=== PATIENT | female | born 2000 | race Caucasian/White ===

== ENCOUNTER 2021-08-18 14:07 | Emergency (ER) | payer OTHER ==
[2021-08-18 14:58] LABS: HEMOGLOBIN 13.9 gm/dl (12.3-15.3); RED BLOOD COUNT 4.88 M/UL (4.00-5.10); WHITE BLOOD COUNT 9.7 K/UL (4.5-11.0)
[2021-08-18 15:16] LABS: BUN/CREATININE RATIO 15 (0-10)
== END 2021-08-18 16:20 | disposition left against medical advice (07) ==
LOC: ER1 14:07
PROVIDERS: Physician Assistant
DX: O99.891 Other specified diseases and conditions complicating pregnancy (principal); R05.9 Cough, unspecified; R10.30 Lower abdominal pain, unspecified; R09.89 Other specified symptoms and signs involving the circulatory and respiratory systems; O99.331 Smoking (tobacco) complicating pregnancy, first trimester; F17.200 Nicotine dependence, unspecified, uncomplicated; Z20.822 Contact with and (suspected) exposure to COVID-19; Z3A.01 Less than 8 weeks gestation of pregnancy
CPT/HCPCS: 80053; 81001; 84703; 85025; 99283; U0003

== ENCOUNTER 2022-02-23 11:02 | Outpatient (CLI) | payer OTHER ==
[2022-02-23 11:34] LABS: HEMOGLOBIN 11.6 gm/dl (12.3-15.3); RED BLOOD COUNT 3.73 M/UL (4.00-5.10); WHITE BLOOD COUNT 9.5 K/UL (4.5-11.0)
== END 2022-02-23 14:43 | disposition home or self-care (01) ==
LOC: GENOP 11:02
PROVIDERS: Obstetrics & Gynecology
DX: O47.03 False labor before 37 completed weeks of gestation, third trimester (principal); Z3A.30 30 weeks gestation of pregnancy
CPT/HCPCS: 81001; 85025; 96361; 96365; 96372; J0702

== ENCOUNTER → 2022-04-01 | Outpatient (CLI) | payer OTHER | LOC: KOH-I 13:30 | DX: M79.605 Pain in left leg (principal) | CPT/HCPCS: 93971 ==

== ENCOUNTER 2022-04-07 16:46 | Inpatient (IN) | payer OTHER ==
[~2022-04-07] VITALS: Ht 165.1 cm; Wt 80.7 kg
[2022-04-07 17:59] LABS: HEMOGLOBIN 11.4 gm/dl (12.3-15.3); RED BLOOD COUNT 3.74 M/UL (4.00-5.10); WHITE BLOOD COUNT 11.7 K/UL (4.5-11.0)
[2022-04-09 07:42] LABS: HEMOGLOBIN 9.2 gm/dl (12.3-15.3)
[2022-04-09] MEDS ORDERED: COLACE 100MG C100 MG PO (14:58)
[2022-04-09] MEDS ORDERED: IBUPROFEN600 MG PO (14:58)
== END 2022-04-10 17:14 | disposition home or self-care (01) | DRG 807 ==
LOC: GENOP 16:46 → OB 17:01
PROVIDERS: ADMIT Obstetrics & Gynecology
PROC: 10E0XZZ Delivery of Products of Conception, External Approach (ICD-10-PCS; principal; 2022-04-08)
PROC: 10907ZC Drainage of Amniotic Fluid, Therapeutic from Products of Conception, Via Natural or Artificial Opening (ICD-10-PCS; 2022-04-08)
PROC: 3E033VJ Introduction of Other Hormone into Peripheral Vein, Percutaneous Approach (ICD-10-PCS; 2022-04-08)
PROC: 3E0P7VZ Introduction of Hormone into Female Reproductive, Via Natural or Artificial Opening (ICD-10-PCS; 2022-04-08)
PROC: 4A1H7CZ Monitoring of Products of Conception, Cardiac Rate, Via Natural or Artificial Opening (ICD-10-PCS; 2022-04-08)
PROC: 10H073Z Insertion of Monitoring Electrode into Products of Conception, Via Natural or Artificial Opening (ICD-10-PCS; 2022-04-08)
PROC: 0UQMXZZ Repair Vulva, External Approach (ICD-10-PCS; 2022-04-08)
PROC: 0HQ9XZZ Repair Perineum Skin, External Approach (ICD-10-PCS; 2022-04-08)
PROC: 3E0234Z Introduction of Serum, Toxoid and Vaccine into Muscle, Percutaneous Approach (ICD-10-PCS; 2022-04-08)
DX: O99.344 Other mental disorders complicating childbirth (principal); Z37.0 Single live birth; F32.A Depression, unspecified; F43.10 Post-traumatic stress disorder, unspecified; F41.1 Generalized anxiety disorder; O70.0 First degree perineal laceration during delivery; Z3A.37 37 weeks gestation of pregnancy; Z28.310 Unvaccinated for COVID-19; Z90.49 Acquired absence of other specified parts of digestive tract; Z82.49 Family history of ischemic heart disease and other diseases of the circulatory system; Z83.3 Family history of diabetes mellitus; Z80.3 Family history of malignant neoplasm of breast; Z81.8 Family history of other mental and behavioral disorders; Z80.8 Family history of malignant neoplasm of other organs or systems; Z23 Encounter for immunization
CPT/HCPCS: 81001; 82800; 85014; 85018; 85025; 90715; C9113; J0595; J0690; J1885; J2270; J2405; J2590

== ENCOUNTER 2022-04-13 21:24 | Observation (INO) | payer OTHER ==
[~2022-04-13 21:24] MED LIST: COLACE 100MG C100 MG PO; IBUPROFEN600 MG PO
[2022-04-13 23:43] LABS: HEMOGLOBIN 8.3 gm/dl (12.3-15.3); RED BLOOD COUNT 2.71 M/UL (4.00-5.10); WHITE BLOOD COUNT 16.5 K/UL (4.5-11.0)
[2022-04-14 00:21] LABS: BUN/CREATININE RATIO 17 (0-10)
[2022-04-14] MEDS ORDERED: NAPROXEN250 MG PO (10:02)
[2022-04-14] MEDS ORDERED: ROXICODONE TAB 55 MG PO (10:02)
[2022-04-14] MEDS ORDERED: AMOX TR-K CLV1 EAC4 PO (10:02)
== END 2022-04-14 20:03 | disposition home or self-care (01) ==
LOC: ER1 21:24 → CDU 04-14 03:43 → OB 04-14 08:31
PROVIDERS: ADMIT Obstetrics & Gynecology
DX: N94.89 Other specified conditions associated with female genital organs and menstrual cycle (principal); D62 Acute posthemorrhagic anemia
CPT/HCPCS: 80053; 81001; 83605; 85025; 87077; 87086; 87186; 96374; 99285; G0378; J0696; Q9967

== ENCOUNTER 2022-04-22 17:40 | Emergency (ER) | payer OTHER ==
[~2022-04-22 17:40] MED LIST changes: +AMOX TR-K CLV1 EAC4 PO; +NAPROXEN250 MG PO; +ROXICODONE TAB 55 MG PO
[2022-04-22 18:15] LABS: HEMOGLOBIN 10.2 gm/dl (12.3-15.3); RED BLOOD COUNT 3.49 M/UL (4.00-5.10); WHITE BLOOD COUNT 12.1 K/UL (4.5-11.0)
[2022-04-22 18:38] LABS: BUN/CREATININE RATIO 19 (0-10)
== END 2022-04-22 22:49 | disposition home or self-care (01) ==
LOC: ER1 17:40
PROVIDERS: Family Medicine
DX: O72.1 Other immediate postpartum hemorrhage (principal); O86.20 Urinary tract infection following delivery, unspecified; N39.0 Urinary tract infection, site not specified; O90.89 Other complications of the puerperium, not elsewhere classified; N83.7 Hematoma of broad ligament; F17.290 Nicotine dependence, other tobacco product, uncomplicated
CPT/HCPCS: 80053; 81001; 85025; 87086; 99284; Q9967